=== PATIENT | male | born 1975 | race Caucasian/White ===

== ENCOUNTER 2023-06-17 23:04 | Emergency (ER) | payer MEDICAID, OTHER ==
[~2023-06-17] VITALS: Ht 172.7 cm; Wt 72.7 kg
[2023-06-17 23:04] VITALS: BP 0/0; PULSE 0
[2023-06-17 23:05] VITALS: RESP 0; O2SAT 50
[2023-06-17] MEDS ORDERED: EPINEPHrine HCL 1 MG/10 ML SYRG IV ONE (23:05)
== END 2023-06-17 23:17 ==
LOC: ER 23:04 → EDBD 23:04 → ER 23:17
DX: I46.9 Cardiac arrest, cause unspecified (principal); V69.49XA Driver of heavy transport vehicle injured in collision with other motor vehicles in traffic accident, initial encounter; Y93.89 Activity, other specified; Y92.89 Other specified places as the place of occurrence of the external cause; Y99.8 Other external cause status
CPT/HCPCS: 31500; 32551; 99285; J0171